=== PATIENT | male | born 1965 | race Caucasian/White ===

== ENCOUNTER 2020-12-23 18:11 | Emergency (ER) | payer OTHER ==
[~2020-12-23] VITALS: Ht 175.3 cm; Wt 79.5 kg
[2020-12-23] MEDS ORDERED: CLINDAMYCIN HCL 150 MG CAPSULE PO ONE (18:45)
[2020-12-23] MEDS ORDERED: CLIN300C9 PO (18:48)
--- NOTE | 2020-12-23 18:55 | PHYS DOC ---
Past History Past Medical History: Asthma, COPD, Depression, Diabetes, GERD, High Cholesterol, Hypertension, Liver Disease, Schizophrenia Alcohol Use: None Adult General Chief Complaint Chief Complaint: ABSCESS HPI HPI Patient is a 55-year-old male presenting via EMS from intermediate for right buttock abscess. States this is been there a while but he raised this complaint to intermediate health care provider who subsequently referred him to our facility for evaluation. Has had abscesses like these in the past that have responded to incision and drainage with subsequent antibiotics. Reports he thinks he needs this today. No fever, chest pain, shortness of breath, abdominal pain, dysuria. Review of Systems Review of Systems Constitutional: Denies fever or chills [] Eyes: Denies change in visual acuity, redness, or eye pain [] HENT: Denies nasal congestion or sore throat [] Respiratory: Denies cough or shortness of breath [] Cardiovascular: No additional information not addressed in HPI [] GI: Denies abdominal pain, nausea, vomiting, bloody stools or diarrhea [] : Denies dysuria or hematuria [] Musculoskeletal: Denies back pain or joint pain [] Integument: Denies rash or skin lesions [] Neurologic: Denies headache, focal weakness or sensory changes [] Endocrine: Denies polyuria or polydipsia [] All other systems were reviewed and found to be within normal limits, except as documented in this note. Allergies Allergies Allergies Coded Allergies Type Severity Reaction Last Updated Verified ceftriaxone Allergy Unknown 12/23/20 Yes sulfadiazine Allergy Unknown 12/23/20 Yes Physical Exam Physical Exam Constitutional: Well developed, well nourished, no acute distress, non-toxic appearance. HENT: Normocephalic, atraumatic, bilateral external ears normal, oropharynx moist, no oral exudates, nose normal. Eyes: PERRLA, EOMI, conjunctiva normal, no discharge. Neck: Normal range of motion, no tenderness, supple, no stridor. Cardiovascular: Heart rate regular, sinus rhythm, no murmurs rubs or gallops Lungs & Thorax: Bilateral breath sounds clear to auscultation Abdomen: Bowel sounds normal, soft, no tenderness, no masses, no pulsatile masses. Nonsurgical abdomen, no peritoneal signs Skin: Warm, dry, no rash. There is a abscess present to right gluteal fold without involvement of anus/anal sphincter or other perianal contents. It is soft fluctuant with a head that appears ready to pop. There is no associated crepitus or other signs of systemic infection or Jake's gangrene Back: No tenderness, no CVA tenderness. Extremities: No tenderness, no cyanosis, no clubbing, ROM intact, no edema. Neurologic: Alert and oriented X 3, grossly normal motor & sensory function, no focal deficits noted. Psychologic: Affect normal, judgement normal, depressed mood Current Patient Data Vital Signs Vital Signs Date Time Temp Pulse Resp B/P (MAP) Pulse Ox O2 Delivery O2 Flow Rate FiO2 12/23/20 18:36 98.5 69 18 151/56 (87) 97 Room Air EKG EKG [] Radiology/Procedures Radiology/Procedures [] Heart Score C/O Chest Pain: No Risk Factors: Risk Factors: DM, Current or recent (<one month) smoker, HTN, HLP, family history of CAD, obesity. Risk Scores: Risk Factors: DM, Current or recent (<one month) smoker, HTN, HLP, family history of CAD, obesity. Course & Med Decision Making Course & Med Decision Making Vital signs stable. HPI and physical exam consistent with right buttock abscess. Verbal consent obtained, incision and drainage performed with significant amount of purulent malodorous material being expressed. Wound appropriately covered. Joint decision made after extensive education on risk benefits of all available medications to start clindamycin which he tolerated well in ER New prescription for clindamycin written. Patient to return back to [facility] with close provider follow-up and if needed outpatient wound care consultation Dragon Disclaimer Dragon Disclaimer This electronic medical record was generated, in whole or in part, using a voice recognition dictation system. Incision and Drainage Incision and Drainage : Blade Size: 11 Progress Abscess over right buttock identified. Verbal consent obtained. Area cleansed with copious amounts of alcohol prep wipes. 0.5cc 2% lidocaine administered. 11 blade scalpel used to make x1 linear incision approximately 1 cm wide with significant expulsion of malodorous exudate. Patient tolerated procedure well without any reported complications Departure Departure: Impression: Primary Impression: Abscess of buttock, right Disposition: 01 HOME / SELF CARE / HOMELESS Condition: STABLE Patient Instructions: Abscess, Care After Additional Instructions: You were evaluated in the Emergency Department for an abscess. Your abscess was incised and drained in the Emergency Department. You should change the dressing every 24 hours. Please keep the areas surrounding the abscess clean and dry. Take the antibiotics prescribed to you in full as directed. You were given a new antibiotic, clindamycin, while in ER and he tolerated this well. This was due to your concern of any "sulfa" containing drugs. Side effects were discussed with the at length. Please fill this prescription and take in its entirety as prescribed Please review your ER visit today with your intermediate provider to ensure close outpatient follow-up for continued resolution ensues Return to the Emergency Department if you experience worsening pain, persistent fevers greater than 100.4, an increase in area of redness, increased tenderness/warmth around the abscess, foul smelling discharge from the abscess, or any other concerning symptoms. Scripts Clindamycin Hcl (CLINDAMYCIN HCL) 300 Mg Capsule 1 CAP PO TID for ABSCESS, #21 CAP Prov: FRANK PETERSON DO 12/23/20 FRANK PETERSON DO December 23, 2020 18:55
[2020-12-23 20:15] VITALS: BP 110/64
== END 2020-12-23 20:36 | disposition home or self-care (01) ==
LOC: ER 18:11
DX: L02.31 Cutaneous abscess of buttock (principal); J44.9 Chronic obstructive pulmonary disease, unspecified; K21.9 Gastro-esophageal reflux disease without esophagitis; E78.5 Hyperlipidemia, unspecified; I10 Essential (primary) hypertension; Z88.2 Allergy status to sulfonamides; Z88.6 Allergy status to analgesic agent
CPT/HCPCS: 10060; 99283-25